=== PATIENT | male | born 1965 | race Caucasian/White ===

== ENCOUNTER 2020-12-29 10:05 | Emergency (ER) | payer OTHER, SELFPAY ==
--- NOTE | ~2020-12-29 | XR_ITS ---
EXAMINATION: XR knee RT min 4V DATE: 12/29/2020 10:42 INDICATION: 3 months of right knee pain TECHNIQUE: Anteroposterior, 2 oblique and crosstable lateral views of the right knee were obtained COMPARISON: None. FINDINGS: Alignment is normal. No fracture. Joint spaces appear normal on nonweightbearing imaging. No joint e ffusion/layering lipohemarthrosis. Soft tissues are unremarkable. IMPRESSION: 1. Negative right knee radiographs. Reviewed, dictated and finalized at location A.
[2020-12-29 10:18] VITALS: BP 180/90; PULSE 91; RESP 16; TEMP 37.3; O2SAT 100
[2020-12-29 10:28] VITALS: BP 180/90; PULSE 91; RESP 16; TEMP 37.3; O2SAT 100
--- NOTE | 2020-12-29 10:36 | ED.LOWEXIN ---
HPI - Extremity Injury (Lower) General Chief Complaint: Extremity Injury, Lower Stated Complaint: right knee pain History of Present Illness HPI Narrative: Patient is a 55 year old male who presents with right knee pain. Patient reports pain intermittently x 3 months, denies known injury. Patient reports increased pain with ambulation and ROM. He reports taking ibuprofen with limited relief. Patient reports increased pain and swelling over the past week. He denies all other complaints at this time. Related Data Home Medications Medication Instructions Recorded Confirmed No Home Medications 12/29/20 12/29/20 Allergies Allergy/AdvReac Type Severity Reaction Status Date / Time No Known Allergies Allergy Verified 12/29/20 10:26 Review of Systems Review of Systems: Narrative: CONSTITUTIONAL: Denies fever, chills, or sweats. EYES: Denies visual changes, redness, or discharge. ENT: Denies rhinorrhea, congestion, sore throat, or otalgia. CARDIOVASCULAR: Denies chest pain, palpitations, or edema. RESPIRATORY: Denies cough or dyspnea. GASTROINTESTINAL: Denies abdominal pain, nausea, vomiting, or diarrhea. GENITOURINARY: Denies dysuria or hematuria. SKIN: Denies rash or itching. MUSCULOSKELETAL: Right knee pain NEUROLOGIC: Denies headache, numbness, dizziness, or weakness. PSYCHIATRIC: Denies anxiety or depression. [facility] Past Medical History Medical History BMI 38.0-38.9,adult BMI 39.0-39.9,adult Chronic shoulder pain Fatigue Low vitamin D level Family History Family History Other Malignant neoplasm of prostate Social History Social History Smoking status: Never smoker Alcohol intake: never Comments At the time of signature, I have reviewed and agree with nursing past medical, surgical, social, and family history unless otherwise noted. Please see nursing chart for further information. There is no relevant family history pertinent to the presenting complaint. Exam Narrative: Exam Narrative: GENERAL: Well-appearing, well-nourished, and in no acute distress. HEAD: Normocephalic, atraumatic. EYES: EOMI. No redness or drainage. ENT: Mucous membranes pink and moist. NECK: AROM. Supple. No lymphadenopathy. CHEST: No respiratory distress. HEART: Regular rate and rhythm. EXTREMITIES: Normal range of motion. Tenderness with palpation to right knee, mild edema, no erythema or warmth. SKIN: Warm, dry, no rash. NEURO: No focal deficits. Alert and oriented x3. Gait steady. PSYCH: Normal affect. No signs of depression or anxiety. Course Vital Signs Vital signs: Vital Signs Temperature 37.3 C 12/29/20 10:18 Pulse Rate 91 12/29/20 10:18 Respiratory Rate 16 12/29/20 10:18 Blood Pressure 180/90 H 12/29/20 10:18 Pulse Oximetry 100 12/29/20 10:18 Temperature 37.3 C 12/29/20 10:28 Pulse Rate 91 12/29/20 10:28 Respiratory Rate 16 12/29/20 10:28 Blood Pressure 180/90 H 12/29/20 10:28 Pulse Oximetry 100 12/29/20 10:28 Reviewed. Patient has been instructed to follow-up with his PCP regarding his blood pressure. MDM - Extremity Injury (Lower) MDM Narrative Medical decision making narrative: Patient's x-ray is negative for fracture or dislocation. Discussed with patient the possibility of soft tissue injury. Patient currently taking 800 mg ibuprofen 3 times daily as well as intermittent Jesse related to shoulder pain. Patient to continue taking medications as directed. Follow-up with orthopedics warranted because of length of pain/discomfort. Patient to follow-up with PCP in 3 to 5 days, orthopedics referral given. Patient is stable for discharge home with outpatient follow-up as needed. Differential Diagnosis Differential diagnosis: Likely acute internal derangement of knee and other (Osteoarthritis, knee sprain or
== END 2020-12-29 11:16 | disposition home or self-care (01) ==
PROVIDERS: Emergency Provider Nurse Practitioner; PCP Family Medicine
DX: M25.561 Pain in right knee (principal)
CPT/HCPCS: 73564; 99213; G0463

== ENCOUNTER 2022-09-25 17:04 | Emergency (ER) | payer OTHER, SELFPAY ==
[2022-09-25 17:15] VITALS: BP 135/78; PULSE 77; RESP 16; TEMP 37
--- NOTE | 2022-09-25 17:20 | ED.EAR ---
HPI - Ear Problem General Chief complaint: Ear Stated complaint: cotton ball stuck in right ear Time Seen by Provider: 09/25/22 17:20 Source: patient Mode of arrival: ambulatory Limitations: no limitations History of Present Illness HPI Narrative: 57-year-old male presented for concerns of the end of a Q-tip stuck in the right ear. Onset about an hour prior to arrival. He states that he was using the Q--tip to clean ear wax as usual, and when he removed it the end was missing and he could not find it. He applied hydrogen peroxide and reports bubbling. Denies ear pain, tinnitus, dizziness, nausea. MD Complaint: ear pain Related Data Home Medications Medication Instructions Recorded Confirmed trazodone 50 mg tablet 50 mg PO DAILY 09/25/22 09/25/22 Allergies Allergy/AdvReac Type Severity Reaction Status Date / Time No Known Allergies Allergy Verified 01/29/22 12:23 Review of Systems Review of Systems: CONSTITUTIONAL: Denies malaise, chills, or fever. EYES: Denies visual changes, redness, or discharge. ENT: Denies rhinorrhea, congestion, sinus pain, and sore throat. CARDIOVASCULAR: Denies chest pain, palpitations, or edema. RESPIRATORY: Denies cough or dyspnea. GASTROINTESTINAL: Denies abdominal pain, nausea, vomiting, diarrhea SKIN: Denies rash or itching. MUSCULOSKELETAL: Denies myalgia. NEUROLOGIC: Denies headache. All systems reviewed & are unremarkable except as noted in HPI and below PMFSH Past Medical History Medical History BMI 33.0-33.9,adult BMI 38.0-38.9,adult BMI 39.0-39.9,adult BMI greater than 30 Chronic shoulder pain Cutaneous tag Fatigue Low vitamin D level Other chronic serous otitis media Rhinitis Right knee pain Family History Family History Father No problems noted. Mother No problems noted. Sibling No problems noted. Other Malignant neoplasm of prostate Social History Social History Alcohol intake: never Comments At time of signature, agree with nursing past medical, surgical, social and family history. There is no relevant family history pertinent to the presenting complaint Exam Narrative: GENERAL: Well-appearing EYES: conjunctivae clear ENT: Nares clear. Mucous membranes moist. TMs pearly fam with clear effusion and dull light reflex bilaterally; no tragal tenderness. No FB to right canal. Oropharynx not erythematous without lesions. NECK: Supple. No lymphadenopathy CHEST: Clear to auscultation, breath sounds equal. HEART: Regular rate and rhythm. No murmur heard. SKIN: Warm, dry, no rash. NEURO: Alert and oriented x3. PSYCH: Normal mood and affect Course Course Emergency Course: Patient is aware of diagnosis, understands and agrees to treatment plan. Anticipatory guidance given. Patient agrees to follow-up as directed and is aware of reasons to seek care at the emergency department. Portions of this record may have been created with voice recognition software Level of Care: Express Care Visit Vital Signs Vital signs: Vital Signs Temperature 98.6 F 09/25/22 17:15 Pulse Rate 77 09/25/22 17:15 Respiratory Rate 16 09/25/22 17:15 Blood Pressure 135/78 09/25/22 17:15 Oxygen Delivery Room Air 09/25/22 17:15 Temperature 98.6 F 09/25/22 17:15 Pulse Rate 77 09/25/22 17:15 Respiratory Rate 16 09/25/22 17:15 Blood Pressure 135/78 09/25/22 17:15 Oxygen Delivery Room Air 09/25/22 17:15 Reviewed Medical Decision Making MDM Narrative Medical decision making narrative: Patient presented for concern for right ear FB, no FB on exam. Noted to have effusion bilaterally. Advised supportive measures and signs/symptoms to go to the ER. Patient is appropriate for outpatient treatment and follow-up. Differential Diagnosis Differential Diagnosis:
== END 2022-09-25 17:27 | disposition home or self-care (01) ==
PROVIDERS: Emergency Provider Nurse Practitioner Family
DX: H65.03 Acute serous otitis media, bilateral (principal)
CPT/HCPCS: 99211; G0463